=== PATIENT | female | born 1980 | race Caucasian/White ===

== ENCOUNTER → 2017-09-23 | Outpatient (CLI) | payer BC ==
[2017-09-23] MEDS: GADOBUTROL 7.5 MMOL/7.5 ML VIAL IV (10:13)
== END | disposition home or self-care (01) ==
LOC: MRI 08:57
DX: H53.8 Other visual disturbances (principal); G93.2 Benign intracranial hypertension; R51 Headache; I10 Essential (primary) hypertension; Z82.49 Family history of ischemic heart disease and other diseases of the circulatory system
CPT/HCPCS: 70544; 70553; A9585

== ENCOUNTER → 2021-05-06 | Outpatient (CLI) | payer BC ==
--- NOTE | 2021-05-06 14:26 | KCIC ---
MR CERVICAL SPINE WO History:Reason: NECK PAIN / Spl. Instructions: / History: Migraines and neck pain for yrs. Pain and tightness into both shoulders. Technique: Multiplanar, multi sequential noncontrast MR imaging was performed of the cervical spine. Comparison: None Findings: Straightening of the cervical lordosis. Normal vertebral body height. No acute fracture. No pathologic signal abnormality within the cervical spinal cord. C2-C3: No canal or neuroforaminal narrowing. C3-C4: No canal or neuroforaminal narrowing. C4-C5: No canal or neuroforaminal narrowing. C5-C6: Minimal disc bulge. No canal or neuroforaminal narrowing. C6-C7: Minimal disc bulge. No canal or neuroforaminal narrowing. C7-T1: No canal or neuroforaminal narrowing. Impression: 1. Mild cervical spondylosis. Electronically signed by: Graeme Hayden DO (05/06/2021 2:24 PM) [id number]
== END ==
LOC: KCIC MRI 13:03
PROVIDERS: ATTEND Psychiatry & Neurology Neurology with Special Qualifications in Child Neurology
DX: M47.812 Spondylosis without myelopathy or radiculopathy, cervical region (principal); M50.222 Other cervical disc displacement at C5-C6 level
CPT/HCPCS: 72141

== ENCOUNTER → 2021-05-14 | Outpatient (CLI) | payer BC ==
[~2021-05-14] MED LIST: BUPR150T8 PO; BUTA-177 PO; CARV25TA2 PO; IOHEXOL 180 MG/ML 10 ML VIAL. ONE; LORA0.5T96 PO; MELO15TA23 PO; ONDA4TAB12 PO; OXCA600T3 PO; PRAZ2CAP2 PO; RIZA10TA PO; TIZA-75 PO; methylPREDNISolone ACETATE 40 MG/ML VIAL. ONE; methylPREDNISolone ACETATE 80 MG/ML VIAL. ONE
--- NOTE | 2021-05-14 09:25 | PDOC1 ---
INITIAL PAIN CONSULT DATE OF SERVICE: DOS: DATE: 05/14/21 TIME: 09:19 CHIEF COMPLAINT: Chief Complaint: Neck and left greater than right upper extremity pain HISTORY OF PRESENT ILLNESS: 40-year-old female presents history of pain base the neck and shoulders worse on the left than the right also with headaches for many years 27 years actually without any specific injury or accident but has had significant pain in the base the neck and shoulders contributing some headaches as well which is much more pronounced with the neck pain at the same time. Patient reports pain is worse on the left side radiating to the left upper extremity posterior triceps and into the anterior biceps and forearm at times but not into the hands patient reports some radiation on the right side but mostly on the left patient reports is constant sharp stabbing throbbing shooting radiating intermittent intensity but always present worse with activity reaching lifting items repetitive motions reaching overhead with her left arm wakes her from sleep multiple times at night patient reports does affect her ability to walk and balance rates her disability rating 0-10 10 being the worst is a 6 with family home responsibilities and life support activities 8 with recreation social activity occupation and sexual behavior 3 with self-care activities. Patient did have an MRI scan cervical spine showing only some minimal diffuse disc bulging at the C5-6 and C6-7 level without any specific stenosis. Patient reports that she had physical therapy which was helpful but only temporarily with the upper extremities and neck also takes tizanidine as well as meloxicam both of which do decrease the pain but she is only started these about a week ago but they seem to be helping at this point. Patient reports no loss of motor function but significant fatigability of the left upper extremity with activity. PAST MEDICAL HISTORY: PMH: Arthritis, bipolar disorder, hypertension, sinus congestions, migraine headaches PREVIOUS SURGERIES: Past Surgical Hx: Hysterectomy 2013 CURRENT MEDICATIONS: Current Meds: Active Scripts Medications Dose Route/Sig Max Daily Dose Days Date Category Ativan (Lorazepam) 0.5 Mg Tablet 0.5 Mg PO BID PRN 05/14/21 Reported Wellbutrin Sr (Bupropion Hcl) 150 Mg Tablet.er 150 Mg PO DAILY 05/14/21 Reported Trileptal (Oxcarbazepine) 600 Mg Tablet 600 Mg PO DAILY 05/14/21 Reported Prazosin Hcl 2 Mg Capsule 4 Mg PO HS 05/14/21 Reported Maxalt (Rizatriptan Benzoate) 10 Mg Tablet 5 Mg PO 1X PRN PRN 05/14/21 Reported Ondansetron Odt (Ondansetron) 4 Mg Tab.rapdis 1 Tab PO PRN Q6-8HRS 05/14/21 Reported Carvedilol 25 Mg Tablet 25 Mg PO BIDWMEALS 05/14/21 Reported Togyse-Vmdfqtg-Dyxzf 50-325-40 (Butalbital/Aspirin/Caffeine) 1 Each Tablet 1 Tab PO PRN DAILY PRN MDD 1 Tablet(s) 30 05/14/21 Reported Meloxicam 15 Mg Tablet 1 Tab PO DAILY 30 05/14/21 Reported Tizanidine Hcl 4 Mg Tablet 2 Mg PO QID PRN 05/14/21 Reported ALLERGIES; Allergies: Coded Allergies: sertraline (Verified Allergy, Intermediate, 05/14/21) FAMILY HISTORY: Family Hx: Breast cancer, liver cancer, cerebral aneurysms SOCIAL HISTORY: Social Hx: Patient drinks alcohol occasionally, does not smoke says any illegal illicit recreational drugs is lives with her spouse has 2 children living home and lives in [facility] REVIEW OF SYSTEMS: ROS: Positive for those items mentioned in history of present illness, all systems are reviewed, otherwise negative ,and are complete full and well-documented on patient's chart. PHYSICAL EXAM: VS: Blood pressure is 138/61 pulse 99 respirations 18 temperature 98.6 F height is 5 feet 3 inches weight is 197 pounds PE: PHYSICAL EXAMINATION: GENERAL: The patient is awake, alert, oriented, appropriate, very pleasant in demeanor HEENT: Shows normocephalic, atraumatic. Extraocular movements are intact and symmetrical. Oral cavity: Mucous membranes moist and pink. Dentition is intact. NECK: Shows anterior throat supple without palpable lymphadenopathy noted. Swallow reflex symmetrical. CHEST: Shows normal on inspection. Breath sounds are clear bilaterally, no rales rhonchi or wheezes auscultated. HEART: Shows S1, S2 clear. No murmurs auscultated. ABDOMEN: Soft, nontender, nondistended, obese. No palpable organomegaly is noted. BACK: Shows spine grossly in the midline. Normal-appearing cervical lordotic curvature. Cervical paraspinous symmetrical inspection, palpation some moderate tenderness diffusely more on the left than the right in the inferior aspect of the cervical paraspinous muscular as well as into the superior medial trapezius worse on the left the right but without specific trigger points. Patient shows full rotation motion cervical spine both laterally greater than 45 degrees right and left as well as full extension full forward flexion with some moderate tenderness with left lateral rotation and forward flexion only. There is slightly increased thoracic kyphosis, some minor flattening of the lumbar lordotic curvature. EXTREMITIES: Upper extremities show deep tendon reflexes 2 in the biceps and triceps tendons. 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 Peripheral pulses are 2+ radial. No peripheral edema is noted bilaterally. Upper extremities are warm and dry to touch, equal in color and appearance. SKIN: Shows warm and dry, good turgor. No edema. No sores, rashes or bruising throughout. IMPRESSION: Impression: 40-year-old female with 27-year history of pain base the neck now rating to the left greater than right upper extremity radicular fashion MRI scan cervical spine as noted Arthritis Hypertension Migraine headaches Plan: Options discussed with the patient including serve medical management is continued physical therapies and interventional techniques. Patient would like to pursue interventional techniques. We discussed a cervical epidural steroid injection using description as well as anatomical models to describe the procedure. Risks were discussed including but not limited to: Bleeding, infection, possibility of epidural hematoma and subsequent neurological compromise, dural puncture, headaches, spinal cord and/or nerve damage, side effects of steroid medication, and poor results regarding pain control. Patient understands and wished to proceed. Patient will return to clinic in approximate 2 weeks for follow-up, was counseled return appointment, activity level, and side effect to be aware of. Procedure cervical epidural steroid injection at the C6-7 level, using local anesthetic under sterile prep and drape using C-arm fluoroscopic guidance under local anesthesia medications injected ;120 mg Depo-Medrol +5 mL normal saline and 2 mL contrast; condition at discharge is stable patient tolerated procedure well. and had no complications TRACI MAJOR MD May 14, 2021 09:25
--- NOTE | 2021-05-14 09:26 | PDOC4 ---
Procedure Note: ICD 10 Code: ICD 10 Code: M54.12 M50.30 Procedure Note: Patient was consented for cervical epidural steroid injection with fluoroscopic guidance. Risks were discussed including but not limited to: Bleeding, infection, possibility of epidural hematoma and subsequent neurological compromise, dural puncture, headaches, spinal cord and/or nerve damage, side effects of steroid medication, and poor results regarding pain control. Patient understands and wished to proceed. Procedure cervical epidural steroid injection at the C6-7 level, using local anesthetic under sterile prep and drape using C-arm fluoroscopic guidance under local anesthesia medications injected ;120 mg Depo-Medrol +5 mL normal saline and 2 mL contrast; condition at discharge is stable patient tolerated procedure well. and had no complications TRACI MAJOR MD May 14, 2021 09:26
== END | disposition home or self-care (01) ==
LOC: PNCL 08:25
PROVIDERS: ATTEND Anesthesiology
DX: M50.10 Cervical disc disorder with radiculopathy, unspecified cervical region (principal); Z79.899 Other long term (current) drug therapy; Z88.8 Allergy status to other drugs, medicaments and biological substances
CPT/HCPCS: 62321; J1030; J1040; Q9965

== ENCOUNTER → 2021-06-17 | Outpatient (CLI) | payer BC ==
[~2021-06-17] MED LIST changes: +ATOG60TA PO
--- NOTE | 2021-06-17 13:43 | PDOC ---
Progress Note - Pain Clinic Date of Service: DOS: DATE: 06/17/21 TIME: 13:40 Diagnosis: Dx: Cervical radiculopathy with cervical degenerative disc disease History or Present Illness: HPI: 40-year-old female returns for follow-up status post cervical epidural steroid injection x1. Patient reports about 90% improvement for about 3 weeks decrease pain in the base the neck and shoulder right upper extremity with pain returning now to moderate extent rated as a 7 on scale 10 is worse over the past week 4 on its least 5 and average and is a 5 today patient reports in the base the neck and shoulders both the left and the right shoulder right upper extremity rating to the right arm and into the forearm as well as mostly in the posterior aspect of the triceps and the biceps as well patient reports is aching and tight can be constant severe and unbearable at times worse with repetitive motions raising her hand over her head on the right side as well as repetitive weight lifting and driving. Patient reports no loss of motor function with significant fatigability again doing much better until the last week or so when the pain is beginning to return fairly significantly and also some pain on the left side now just in the shoulder but not into the upper extremities. Physical Exam: VS: Blood pressure is 145/102 pulse 87 respirations 18 temperature 98.1 F height is 5 feet 3 inches weight is 197 pounds PE: PHYSICAL EXAMINATION: GENERAL: The patient is awake, alert, oriented, appropriate, very pleasant in demeanor HEENT: Shows normocephalic, atraumatic. Extraocular movements are intact and symmetrical. Oral cavity: Mucous membranes moist and pink. Dentition is intact. NECK: Shows anterior throat supple without palpable lymphadenopathy noted. Swallow reflex symmetrical. CHEST: Shows normal on inspection. Breath sounds are clear bilaterally. HEART: Shows S1, S2 clear. No murmurs auscultated. ABDOMEN: Soft, nontender, nondistended, obese. No palpable organomegaly is noted. BACK: Shows spine grossly in the midline. Normal-appearing cervical lordotic curvature. Cervical paraspinous muscles show symmetrical with inspection on palpation some moderate tenderness diffusely bilaterally inferior aspect the cervical paraspinous muscles but more diffusely without significant radiation. Patient shows full rotation of motion cervical spine both laterally as well as e xtension flexion without significant difficulty or loss of range. There is slightly increased thoracic kyphosis, some minor flattening of the lumbar lordotic curvature. EXTREMITIES: Upper extremities show deep tendon reflexes 2+ in the biceps and triceps tendons. 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 Peripheral pulses are 2+ radial. No peripheral edema is noted bilaterally. Upper extremities are warm and dry to touch, equal in color and appearance. SKIN: Shows warm and dry, good turgor. No edema. No sores, rashes or bruising throughout. Procedure: Procedure: Options were discussed with patient. Patient chart was reviewed as her current medication regimen updated current review of systems updated today as well. We will proceed with a cervical epidural steroid injection today with fluoroscopic guidance. Risks were discussed including but not limited to: Bleeding, infection, possibility of epidural hematoma and subsequent neurological compromise, dural puncture, headaches, spinal cord and/or nerve damage, side effects of steroid medication, and poor results regarding pain control. Patient understands and wished to proceed. Patient will return to clinic in appr oximately 4 weeks for follow-up, was counseled as return appointment, activity level, and side effects beware. Medication Injected: Med Injected: Procedure cervical epidural steroid injection at the C6-7 level, using local anesthetic under sterile prep and drape using C-arm fluoroscopic guidance under local anesthesia medications injected ;120 mg Depo-Medrol +5 mL normal saline and 2 mL contrast; condition at discharge is stable patient tolerated procedure well. and had no complications Condition at Discharge: Condition at Discharge: Condition at discharge is stable, paced tolerated procedure well and had no complications. TRACI MAJOR MD Jun 17, 2021 13:43
--- NOTE | 2021-06-17 13:44 | PDOC4 ---
Procedure Note: ICD 10 Code: ICD 10 Code: M54.12 M5 0.30 Procedure Note: Procedure cervical epidural steroid injection at the C6-7 level, using local anesthetic under sterile prep and drape using C-arm fluoroscopic guidance under local anesthesia medications injected ;120 mg Depo-Medrol +5 mL normal saline and 2 mL contrast; condition at discharge is stable patient tolerated procedure well. and had no complications TRACI MAJOR MD Jun 17, 2021 13:44
== END | disposition home or self-care (01) ==
LOC: PNCL 13:06
PROVIDERS: ATTEND Anesthesiology
DX: M50.10 Cervical disc disorder with radiculopathy, unspecified cervical region (principal); Z79.899 Other long term (current) drug therapy; Z88.8 Allergy status to other drugs, medicaments and biological substances
CPT/HCPCS: 62321; J1030; J1040; Q9965